=== PATIENT | male | born 1990 | race Caucasian/White ===

== ENCOUNTER 2021-06-24 20:47 | Emergency (ER) | payer SELFPAY ==
[2021-06-24 22:28] LABS: HEMOGLOBIN 16.8 gm/dl (14.0-17.5); RED BLOOD COUNT 5.35 M/UL (4.20-5.50); WHITE BLOOD COUNT 9.4 K/UL (4.5-11.0)
[2021-06-24 22:49] LABS: BUN/CREATININE RATIO 15 (0-10)
[2021-06-25] MEDS ORDERED: PROVENTIL HFA6.7 GM INH (00:34)
[2021-06-25] MEDS ORDERED: LODINE CAP 300300 MG PO (00:34)
[2021-06-25] MEDS ORDERED: BENZONATATE100 MG PO (00:34)
[2021-06-25] MEDS ORDERED: ZOFRAN ODT 4 MG4 MG PO (00:34)
== END 2021-06-25 00:36 | disposition home or self-care (01) ==
LOC: ER1 20:47
PROVIDERS: Physician Assistant
DX: U07.1 COVID-19 (principal)
CPT/HCPCS: 71045; 80053; 82550; 82553; 84484; 85025; 85379; 85610; 85730; 99283